=== PATIENT | male | born 1990 | race Caucasian/White ===

== ENCOUNTER 2018-10-28 09:17 | Emergency (ER) | payer MEDICARE, MEDICAID ==
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
[2018-10-28 09:53] LABS: CHLORIDE,CL 106 mmol/L (98-107); SODIUM,NA 142 mmol/L (136-145)
[2018-10-28 10:05] VITALS: BP 140/87
== END 2018-10-28 10:10 | disposition home or self-care (01) ==
LOC: LL.ED 09:17
DX: K64.1 Second degree hemorrhoids (principal); R71.8 Other abnormality of red blood cells; J45.20 Mild intermittent asthma, uncomplicated; K21.9 Gastro-esophageal reflux disease without esophagitis; F41.8 Other specified anxiety disorders; I10 Essential (primary) hypertension; Z88.5 Allergy status to narcotic agent
CPT/HCPCS: 36415; 74022; 80053; 82150; 82272; 83605; 83690; 83735; 84550; 85025; 85610; 85730; 99285-25